=== PATIENT | female | born 1965 | race Caucasian/White ===

== ENCOUNTER → 2017-03-09 | Outpatient (CLI) | payer SELFPAY ==
--- NOTE | 2017-03-09 13:00 | DI ---
XR FOOT COMPLETE MIN 3VW,03/09/2017 9:21 AM: Clinical History: Left foot pain Previous Exam: None at this facility. Findings: Multiple views the left foot are obtained, and demonstrate anatomic alignment without fractures. Surr ounding soft tissues are unremarkable. There is mild osteopenia. There is enthesopathy noted at the i nsertion of the Achilles tendon. Impression: No fracture.
== END ==
LOC: MOB RAD 09:22
PROVIDERS: ATTEND Physician Assistant
DX: M79.672 Pain in left foot (principal); M76.62 Achilles tendinitis, left leg
CPT/HCPCS: 73630